=== PATIENT | female | born 1990 | race Caucasian/White ===

== ENCOUNTER 2019-05-27 11:56 | Outpatient (REF) | payer MEDICAID, SELFPAY ==
[2019-05-27 21:05] LABS: TSH 0.73 uIU/mL (0.358-3.74)
== END 2019-05-27 12:16 ==
LOC: NCHCN 11:56
PROVIDERS: PCP Family Medicine; Visit Provider Nurse Practitioner Family
DX: N93.8 Other specified abnormal uterine and vaginal bleeding (principal)
CPT/HCPCS: 84443

== ENCOUNTER 2022-06-15 15:54 | Outpatient (REF) | payer MEDICAID, SELFPAY ==
--- OUTSIDE RECORDS SUMMARY | 2022-06-15 16:03 | XMS_ITS | CCD ---
:1990 Author Care Team Providers Name Role Phone JENNIFER LARSON Attending Physician Unavailable JENNIFER LARSON Rounding (Secondary) Physician Unavailab le Vital Signs Unknown or Not Available. Allergies Allergy Code Allergy Type Reaction Status No Known Allergies 0 No known allergies Act fernie Procedures Unknown or Not Available. History of Immunizations Unknown or Not Available. Problems Unknown or Not Available. Results Unknown or Not Available. Active Medications Medication Code Dose Units Frequency Route Modification Start Date/Time Flovent HFA 042052 1 EACH NEEDED INHALATION 018 0.11MG/1Actuat 16:23 ion Inhalation Aerosol Powder Prescription Detail 1 EACH INHALATION NEEDED ProAir HFA 683209 2 PUFF NEEDED INHALATION 11/30/19 18 16:23 0.09MG/1Actuation Inhalation Suspension Prescription Detail 2 PUFF INHALATION NEEDED Medications Administered During Visit Unknown or Not Available. Encounters Encounter Diagnosis Diagnosis Code Start Date Pain in left shoulder [id number] 12/12/2021 Social History Smoking Status Code Start Date End Date Current every day smoker [id number] Patient Decision Aids Unknown or Not Available. Discharge Instructions You were admitted to [facility] on 12/12/2021 09:38 with a principal diagnosis of Pain in left shoulder You were discharged from [facility] on 12/12/2021 00:00 Should you have any questions prior to d ischarge, please contact a member of your healthcare team. If you have left the ho spital and have any questions, please contact your primary care physician. Chief Complaint and Reason For Visit Unknown or Not Available. Function Status Unknown or Not Available. Plan of Care Unknown or Not Available. Referral/Transition of Care Unknown or Not Available.
--- OUTSIDE RECORDS SUMMARY | 2022-06-15 16:03 | XMS_ITS | CCD ---
:1990 Author Care Team Providers Name Role Phone VENKATA DANIELLE Attending Physician Unavailable VENKATA DANIELLE Rounding (Secondary) Physician Unavaila ble Vital Signs Unknown or Not Available. Allergies Allergy Code Allergy Type Reaction Status No Known Allergies 0 No known allergies Act fernie Procedures Unknown or Not Available. History of Immunizations Unknown or Not Available. Problems Unknown or Not Available. Results Unknown or Not Available. Active Medications Medication Code Dose Units Frequency Route Modification Start Date/Time Flovent HFA 523014 1 EACH NEEDED INHALATION 018 0.11MG/1Actuat 16:23 ion Inhalation Aerosol Powder Prescription Detail 1 EACH INHALATION NEEDED ProAir HFA 854884 2 PUFF NEEDED INHALATION 11/30/19 18 16:23 0.09MG/1Actuation Inhalation Suspension Prescription Detail 2 PUFF INHALATION NEEDED Medications Administered During Visit Unknown or Not Available. Encounters Encounter Diagnosis Diagnosis Code Start Date Impingement syndrome of left shoulder M7542 Social History Smoking Status Code Start Date End Date Current every day smoker [id number] Patient Decision Aids Unknown or Not Available. Discharge Instructions You were admitted to [facility] on 09/23/2021 09:59 with a principal diagnosis of Impingement syndrome of left shoulder You were discharged from [facility] on 09/23/2021 00:00 Should you have any questions prior to d ischarge, please contact a member of your healthcare team. If you have left the spital and have any questions, please contact your primary care physician. Chief Complaint and Reason For Visit Unknown or Not Available. Function Status Unknown or Not Available. Plan of Care Unknown or Not Available. Referral/Transition of Care Unknown or Not Available.
--- OUTSIDE RECORDS SUMMARY | 2022-06-15 16:03 | XMS_ITS | CCD ---
[...] Frequency Route Modification Start Date/Time Flovent HFA 436969 1 EACH NEEDED INHALATION 018 0.11MG/1Actuat 16:23 ion Inhalation Aerosol Powder Prescription Detail 1 EACH INHALATION NEEDED ProAir HFA 085450 2 PUFF NEEDED INHALATION 11/30/19 18 16:23 0.09MG/1Actuation Inhalation Suspension Prescription Detail 2 PUFF INHALATION NEEDED Medications Administered During Visit Unknown or Not Available. Encounters Unknown or Not Available. Social History Smoking Status Code Start Date End Date Current every day smoker [id number] Patient Decision Aids Unknown or Not Available. Discharge Instructions You were admitted to [facility] on 06/14/2022 10:59 You were discharged from [facility] on 06/14/2022 00:00 Should you have any questions prior [...]
--- OUTSIDE RECORDS SUMMARY | 2022-06-15 16:03 | XMS_ITS | CCD ---
[...] Frequency Route Modification Start Date/Time Flovent HFA 376739 1 EACH NEEDED INHALATION 018 0.11MG/1Actuat 16:23 ion Inhalation Aerosol Powder Prescription Detail 1 EACH INHALATION NEEDED ProAir HFA 905681 2 PUFF NEEDED INHALATION 11/30/19 18 16:23 0.09MG/1Actuation Inhalation Suspension Prescription Detail 2 PUFF INHALATION NEEDED Medications Administered During Visit Unknown or Not Available. Encounters Encounter Diagnosis Diagnosis Code Start Date Pain in left shoulder [id number] 04/14/2022 Social History Smoking Status Code Start Date End Date Current every day smoker [id number] Patient Decision Aids Unknown or Not Available. Discharge Instructions You were admitted to [facility] on 04/14/2022 07:30 with a principal diagnosis of Pain in left shoulder You were discharged from [facility] on 04/14/2022 00:00 Should you have any questions prior [...]
--- OUTSIDE RECORDS SUMMARY | 2022-06-15 16:04 | XMS_ITS | Encounter Summary ---
:1990 Author Organization [facility] Address [address] [place] [address] Care Team Providers Name Role Phone Keyona Krishnamurthy MD Primary Care Provider Reason for Referral Radiology Services (STAT) - Authorization Not Required Specialty Diagnoses / Procedures Referred By Contact Refer red To Contact Diagnoses Crushing injury of left index finger Delilah Stern MD [facility] Procedures XR HAND LEFT 3 OR MORE VIEWS [address] [place], [place] [phone] Referral ID Status Reason Start Expiration Visits Visits Date Date Requested Authorized [id number] Authorization Not 04/21/2022 1 1 Required Reason for Visit Radiology Services (STAT) - Authorization Not Required Specialty Diagnoses / Procedures Referred By Contact Refer red To Contact Diagnoses Crushing injury of left index finger Delilah Stern MD [facility] Procedures XR HAND LEFT 3 OR MORE VIEWS [address] [place], [place] [phone] Referral ID Status Reason Start Expiration Visits Visits Date Date Requested Authorized [id number] Authorization Not 04/21/2022 1 1 Required Encounter Details Date Type Department Care Team Description 04/21/2022 Hospital Encounter [facility] - C rushing injury of left [facility] Xray index finger [address] [place] [address] Social History Tobacco Use Types Packs/Day Years Used Date Never Assessed Sex Assigned at Date Recorded Not on file documented as of this encounter Discharge Disposition Disposition Code Departure Means Destination Home or Self Care documented in this encounter Plan of Treatment Not on filedocumented as of this encounter Procedures Procedure Name Priority Date/Time Associated Diagnosis Comme nts XR HAND LEFT 3 OR STAT 04/21/2022 16:32 Crushing injury of Results for this MORE VIEWS EDT left index finger procedure are in the results section. documented in this encounter Results XR HAND LEFT 3 OR MORE VIEWS (04/21/2022 16:32 EDT) Anatomical Region Laterality Modality Upper Extremities Left Computed Radiography Specimen Impressions [facility] - 04/21/2022 17:12 EDT Acute nondisplaced fracture of the distal diaphysis of the distal phalanx of 2nd finger. ?? THIS DOCUMENT HAS BEEN ELECTRONICALLY SI GNED BY AMAURI CAI DO FOR ANY QUESTIONS OR CONCERNS REGARDING THIS REPORT PLEASE CALL [facility] AT [phone] Narrative [facility] - 04/21/2022 17:12 EDT PROCEDURE INFORMATION: Exam: XR Left Hand Exam date and time: 04/21/2022 4:19 PM Age: 32 years old Clinical indication: Crushing injury of left index finger, initial encounter; Pain; Finger(s); Steve tional info: Crush injury (l) index finger TECHNIQUE: Imaging protocol: XR Left hand. Views: 3 or more views. COMPARISON: No relevant prior studies available. FINDINGS: Bones/joints: Acute nondisplaced fractur e of the distal diaphysis of the distal phalanx of 2nd f kaylee. Soft tissue edema. No radiopaque foreign Soft tissues: ??Soft tissue edema. Procedure Note Amauri Cai DO - 04/21/2022 PROCEDURE INFORMATION: Exam: XR Left Hand Exam date and time: 04/21/2022 4:19 PM Age: 32 years old Clinical indication: Crushing injury of left index finger, initial encounter; Pain; Finger(s); Steve tional info: Crush injury (l) index finger TECHNIQUE: Imaging protocol: XR Left hand. Views: 3 or more views. COMPARISON: No relevant prior studies available. FINDINGS: Bones/joints: Acute nondisplaced fractur e of the distal diaphysis of the distal phalanx of 2nd f kaylee. Soft tissue edema. No radiopaque foreign Soft tissues: Soft tissue edema. IMPRESSION Acute nondisplaced fracture of the dista l diaphysis of the distal phalanx of 2nd finger. THIS DOCUMENT HAS BEEN ELECTRONICALLY SI GNED BY AMAURI CAI DO FOR ANY QUESTIONS OR CONCERNS REGARDING THIS REPORT PLEASE CALL [facility] AT [phone] Performing Organization Address City/State/ZIP Code Phon e Number [facility] documented in this encounter Visit Diagnoses Diagnosis Crushing injury of left index finger Crushing injury of finger(s) documented in this encounter Care Teams Nursery Laborer Relationship Specialty Start Date End Date Keyona Krishnamurthy MD PCP - General Family Medicine - Primary 04/21/[address] [place] [phone] documented as of this encounter
--- OUTSIDE RECORDS SUMMARY | 2022-06-15 16:04 | XMS_ITS | Encounter Summary ---
:1990 Author Organization [facility] Address [address] [place] [address] Care Team Providers Name Role Phone Unknown, Provider Primary Care Provider Encounter Details Date Type Department Care Team Description 11/13/[address] [facility] - Sophia Parry, Only [facility] Lab - Main [facility] [address] [place] [address] [address] [place] [address] Social History Tobacco Use Types Packs/Day Years Used Date Never Assessed Sex Assigned at Date Recorded Not on file documented as of this encounter Plan of Treatment Not on filedocumented as of this encounter Procedures Procedure Name Priority Date/Time Associated Comments Diagnosis COMPLETE BLOOD COUNT Routine 11/13/2018 8:15 Resu lts for this WITH DIFFERENTIAL EST procedure are in (AUTO) the results section. BLOOD BANK HOLD Routine 11/13/2018 8:15 Results f or this EST procedure are i n the results section. documented in this encounter Results (ABNORMAL) COMPLETE BLOOD COUNT WITH DIFFERENTIAL (AUTO) (11/13/2018 8:15 EST) Pathologist Sig nature ABSOLUTE NEUTROPHIL 8.77 (H) 1.7 - 7.0 [facility] COUN - [facility] 10e3/ul [facility]ENTER [facility] BASO # - [facility] 0.02 0.0 - 0.3 [facility] MED 10e3/uL [facility] % - [facility] 0 0 - 2 % [facility] EOS # - [facility] 0.09 0.05 - 0.5 [facility] 10e3/uL [facility] EOS % - [facility] 1 0 - 5 % [facility] GRAN % - [facility] 66 40 - 80 % [facility] HEMATOCRIT - [facility] 42.1 34.0 - 47.0 % [facility] HEMOGLOBIN - [facility] 14.3 11.2 - 15.7 [facility] g/dl [place] [facility] IG# - [facility] 0.12 (H) 0 - 0.07 [facility] 10e3/uL [place] IG% - [facility] 0.9 0 - 0.9 % [facility] LYMPH # - [facility] 3.59 (H) 0.9 - 2.9 [facility] 10e3/uL [place] [facility] LYMPH% - [facility] 27 20 - 40 % [facility] MEAN CORPUSCULAR HGB 28.5 26 - 34 pg [facility] MEAN CORPUSCULAR HGB 34.0 31 - 36 g/dL [facility] CONC [facility] LAB MEAN CELL VOLUME - 84.0 77 - 100 fl [facility] MONO # - [facility] 0.72 0.3 - 0.9 [facility] 10e3/uL [place] [facility] MONO% - [facility] 5 0 - 12 % [facility] PLATELET COUNT 317 150 - 400 [facility] 10e3/ul [place] [facility] RED BLOOD COUNT - 5.01 3.8 - 5.2 [facility] 10e6/ul [place] [facility] RED CELL DISTRI WIDTH 14.5 11.8 - 15.6 % [facility] ME D [facility] LAB WHITE BLOOD COUNT - 13.3 (H) 3.5 - 10.5 [facility] 10e3/ul [place] [facility] Specimen Performing Organization Address [facility] Phon e Number [facility] [address] [place], [place] [id number] [place] [address] LAB BLOOD BANK HOLD (CLOT) (11/13/2018 8:15 EST) CLOT TO HOLD - [facility] See Note [facility] Comment: CENTER LAB CLOT TO HOLD WILL IN 48 HOURS FROM DATE ?AND TIME OF COLLECTION ?BLOOD BANK HISTORY HAS BEEN CHECKED Specimen Performing Organization Address [facility] Phon e Number [facility] [address] [place] [address] [facility] documented in this encounter Visit Diagnoses Not on filedocumented in this encounter Care Teams Data Virtualization Consultant Relationship Specialty Start Date End Date Unknown, Provider, PCP - General 04/22/18 04/20/22 documented as of this encounter
--- OUTSIDE RECORDS SUMMARY | 2022-06-15 16:04 | XMS_ITS | Encounter Summary ---
:1990 Author Organization [facility] Address [address] [place] [address] Care Team Providers Name Role Phone Alessia Garcia SHRUTHI Primary Care Provider Unknown, Provider Primary Care Provider Encounter Details Date Type Department Care Team Description 10/08/2009 Historical Results [facility] - Tim Bettencourt, Only [facility] Lab - Main [facility] DO [address] [place] [address] [address] [place] [address] Social History Tobacco Use Types Packs/Day Years Used Date Never Assessed Sex Assigned at Date Recorded Not on file documented as of this encounter Plan of Treatment Not on filedocumented as of this encounter Procedures Procedure Name Priority Date/Time Associated Diagnosis Comme nts SURGICAL PATHOLOGY Routine 10/08/2009 Results f or this procedure are i n the results section . documented in this encounter Results SURGICAL PATHOLOGY (10/08/2009) Specimen Narrative [facility] - 10/19/2009 12 :54 EST Name: CATARINA TODD ? : [birth year] ?Age/Sex: 29/F ?Unit#: [id number] ? Loc: OBS ? Status: DIS IN ? Reg Date: 10/08/09 ? Pt.Phone Number : ? Specimen: [id number] ? STA TUS: SOUT ?Spec Date:10/08/09 ? Physician Copies: ?Philip Bettencourt DO Tissues: A ?? Female Reproductive System (PLACENTA) ? CPT: 33266 ?? Units: ??1 ?FINAL DIAGNOSIS ? Placenta, membranes, and umbilica l cord: ? - Mature white placenta (448 grams). ? - Acute chorioamnionitis. ? - Early umbilical cord inflammati on (leukocyte margination in umbilical ? arteries), no fully developed funisitis. ?COMMENT ? No meconium is identified. ??No villiti s or fully developed funisitis. ? GROSS DESCRIPTION ? Received in formalin labeled with the patient's name is a placenta with ? attached membranes and umbi lical cord. ??The placenta is irregularly oval ? shaped with a diameter of 17 x 12 cm and a maximum thickness of 3.5 cm. ??The ? umbilical cord shows a solid cent ral insertion and measures 45 cm long x ? average 1 cm in diameter. ??No kn ots, varices, or thrombosis are present. ? Cross-sectioning demonstrates the normal three vessels. ?? membranes are ? zhang-cole, pliable and translucent . ??Membranes appear to be complete are without ? gross evidence of meconium staini ng. ??The trimmed placenta weighs 448 grams. ? The surface is blue-cole, s mooth and glistening with the usual pattern of ? arborizing vessels. ??No varices or thrombosis are seen. ??The maternal surface ? shows normal cotyledonous archite cture and is complete with mild central ? disruption. ??No infarcts are franco ntified. ??Interval sectioning shows deep red ? spongy parenchyma without solid o r cystic masses. ??r.s. 4. CP ?? PREOP DX/CLINICAL HISTORY ?Term-- spontaneo us labor. Terminal bradycardia. Signed ____(signature on file)____ Izabel Sanford M.D. 10/19/09 By the signature above, the attending ph ysician certifies that he/she has personally conducted a gross and/or microscopic exa mination of the described specimens and rendered or confirmed the above diagnosi s. Test Performed by [facility], [address] [place], [place] [id number] Mechanical Test Engineer: Izabel Esquivel MD PHD Performing Organization Address City/State/ZIP Code Phon e Number [facility] [address] [place] [phone] [facility] documented in this encounter Visit Diagnoses Not on filedocumented in this encounter Care Teams Radio Operator Relationship Specialty Start Date End Date Alessia Garcia FNP PCP - General 06/15/09 04/21/18 [address] [place] [phone] Unknown, Provider, PCP - General 04/22/18 04/20/22 documented as of this encounter
--- OUTSIDE RECORDS SUMMARY | 2022-06-15 16:04 | XMS_ITS | Encounter Summary ---
:1990 Author Organization [facility] Address [address] [place] [address] Care Team Providers Name Role Phone Alessia Garcia Primary Care Provider Encounter Details Date Type Department Care Team Description 05/18/2014 Hospital Encounter [facility] - Unknown, Claudine brennan, [facility] [phone] [place] [address] (Work) [place] [address] Social History Tobacco Use Types Packs/Day Years Used Date Never Assessed Sex Assigned at Date Recorded Not on file documented as of this encounter Discharge Disposition Disposition Code Departure Means Destination Home or Self Senior Care documented in this encounter Plan of Treatment Not on filedocumented as of this encounter Visit Diagnoses Not on filedocumented in this encounter Care Teams Blasting Clay Miner Relationship Specialty Start Date End Date Alessia Garcia FNP PCP - General 06/15/09 04/21/18 [address] [place] [phone] documented as of this encounter
--- OUTSIDE RECORDS SUMMARY | 2022-06-15 16:04 | XMS_ITS | Encounter Summary ---
:1990 Author Organization [facility] Address [address] [place] [address] Care Team Providers Name Role Phone Alessia Garcia Primary Care Provider Encounter Details Date Type Department Care Team Description 04/18/2018 Hospital Encounter [facility] - Unknown, Claudine brennan, [facility] [phone] [place] [address] (Work) [place] [address] Social History Tobacco Use Types Packs/Day Years Used Date Never Assessed Sex Assigned at Date Recorded Not on file documented as of this encounter Discharge Disposition Disposition Code Departure Means Destination Home or Self Senior Care documented in this encounter Plan of Treatment Not on filedocumented as of this encounter Visit Diagnoses Not on filedocumented in this encounter Care Teams Spring Tier Relationship Specialty Start Date End Date Alessia Garcia FNP PCP - General 06/15/09 04/21/18 [address] [place] [phone] documented as of this encounter
--- OUTSIDE RECORDS SUMMARY | 2022-06-15 16:04 | XMS_ITS | Encounter Summary ---
:1990 Author Organization [facility] Address [address] [place] [address] Care Team Providers Name Role Phone Unknown, Provider Primary Care Provider Encounter Details Date Type Department Care Team Description 08/30/2018 Historical Results [facility] - Shwetha An, Only [facility] Lab - Main [facility] MD [facility] [address] [place] [address] [address] [place] [address] Social History Tobacco Use Types Packs/Day Years Used Date Never Assessed Sex Assigned at Date Recorded Not on file documented as of this encounter Plan of Treatment Not on filedocumented as of this encounter Procedures Procedure Name Priority Date/Time Associated Diagnosis Comme nts [facility] Routine 08/30/2018 8:59 EDT Re sults for this procedure are i n the results section. HEMOGLOBIN - CV Routine 08/30/2018 8:59 EDT Res ults for this procedure are i n the results section. documented in this encounter Results [facility] - CV (08/30/2018 8:59 EDT) [facility] - 127 88 - 139 [facility] Comment: mg/dL [facility]ENTER LAB ACOG RECOMMENDED GUIDELINES Greater than or equal to ??140 mg/dL suspect gestation al diabetes. ?? Recommend confirmation with 3 hr GTT Specimen Narrative [facility] - 018 10:06 EDT Does PT Have a Latex Allergy? NO Performing Organization Address City/State/ZIP Code Phon e Number [facility] [address] [place] [address] [facility] HEMOGLOBIN - [facility] (08/30/2018 8:59 EDT) Pathologist Sig nature HEMOGLOBIN - [facility] 12.7 11.2 - 15.7 g/dl [facility] Specimen Narrative [facility] - 018 9:58 EDT Does PT Have a Latex Allergy? NO Performing Organization Address City/State/ZIP Code Phon e Number [facility] [address] [place], [place] [phone] [place] [address] LAB documented in this encounter Visit Diagnoses Not on filedocumented in this encounter Care Teams Dental Director Relationship Specialty Start Date End Date Unknown, Provider, PCP - General 04/22/18 04/20/22 documented as of this encounter
--- OUTSIDE RECORDS SUMMARY | 2022-06-15 16:04 | XMS_ITS | Encounter Summary ---
:1990 Author Organization [facility] Address [address] [place] [address] Care Team Providers Name Role Phone Alessia Garcia [facility] Primary Care Provider Encounter Details Date Type Department Care Team Description 10/19/2009 Abstract [facility] Alessia Garcia Fet al Abn [facility] [address] [place] [phone] (Wo rk) Social History Tobacco Use Types Packs/Day Years Used Date Never Assessed Sex Assigned at Date Recorded Not on file documented as of this encounter Plan of Treatment Not on filedocumented as of this encounter Visit Diagnoses Diagnosis Other known or suspected abnormali ty, not elsewhere classified, affecting management of mother, antepartum conditi on or complication documented in this encounter Care Teams Needle Grinder Relationship Specialty Start Date End Date Alessia Garcia FNP PCP - General 06/15/09 04/21/18 [address] [place] [phone] documented as of this encounter
--- OUTSIDE RECORDS SUMMARY | 2022-06-15 16:04 | XMS_ITS | Encounter Summary ---
:1990 Author Organization [facility] Address [address] [place] [address] Care Team Providers Name Role Phone Alessia Garcia SHRUTHI Primary Care Provider Encounter Details Date Type Department Care Team Description 06/16/2009 Hospital Encounter [facility] [address] [place] [address] Social History Tobacco Use Types Packs/Day Years Used Date Never Assessed Sex Assigned at Date Recorded Not on file documented as of this encounter Discharge Disposition Disposition Code Departure Means Destination Home or Self Retirement documented in this encounter Plan of Treatment Pending Results Name Type Priority Associated Diagnoses Date/Ti me SENIOR LIVING DETAILED Imaging 06/16/2009 15:1 5 EDT Scheduled Orders Name Type Priority Associated Diagnoses Order S chedule SENIOR LIVING DETAILED Imaging ONCE for 1 Occu rrences starting 07/15/2009 documented as of this encounter Procedures Procedure Name Priority Date/Time Associated Diagnosis Comme nts SENIOR LIVING DETAILED 06/16/2009 15:00 EDT Results for this procedure are i n the results section . documented in this encounter Results SENIOR LIVING DETAILED (06/16/2009 15:00 EDT) Anatomical Region Laterality Modality Other Specimen Narrative [facility] - 06/22/2009 5:38 EDT Please refer to the separate [facility] re port. ??Contact Maternal Medicine. Procedure Note 06/22/2009 Please refer to the separate [facility] re port. Contact Maternal Medicine. Performing Organization Address City/State/ZIP Code Phon e Number [facility] MATERNAL MEDICINE ACC [facility] documented in this encounter Visit Diagnoses Not on filedocumented in this encounter Care Teams Customer Support Manager Relationship Specialty Start Date End Date Alessia Garcia FNP PCP - General 06/15/09 04/21/18 [address] [place] [phone] documented as of this encounter
--- OUTSIDE RECORDS SUMMARY | 2022-06-15 16:04 | XMS_ITS | Encounter Summary ---
:1990 Author Organization [facility] Address [address] [place] [address] Care Team Providers Name Role Phone Unknown, Provider Primary Care Provider Encounter Details Date Type Department Care Team Description 05/16/2018 Historical Results Only [facility] - Caleb Galo, [facility] - [facility] [address] [place] [address] Social History Tobacco Use Types Packs/Day Years Used Date Never Assessed Sex Assigned at Date Recorded Not on file documented as of this encounter Plan of Treatment Not on filedocumented as of this encounter Procedures Procedure Name Priority Date/Time Associated Diagnosis Comme nts GC/CHLAMYDIA PCR - Routine 05/16/2018 11:00 Resul ts for this [facility] EDT procedure are i n the results section. documented in this encounter Results GC/CHLAMYDIA PCR - [facility] (05/16/2018 11:00 EDT) Pathologist Sig nature CHLAMYDIA PCR - [facility] NOT DETECTED [facility] GONORRHEA PCR - [facility] NOT DETECTED [facility] SOURCE CX [facility] Specimen Performing Organization Address City/State/ZIP Code Phon e Number [facility] [address] [place] [address] [facility] documented in this encounter Visit Diagnoses Not on filedocumented in this encounter Care Teams Assistant Professor Of Education Relationship Specialty Start Date End Date Unknown, Provider, PCP - General 04/22/18 04/20/22 documented as of this encounter
--- OUTSIDE RECORDS SUMMARY | 2022-06-15 16:04 | XMS_ITS | Encounter Summary ---
:1990 Author Organization [facility] Address [address] [place] [address] Care Team Providers Name Role Phone Alessia Garcia SHRUTHI Primary Care Provider Unknown, Provider Primary Care Provider Encounter Details Date Type Department Care Team Description 04/18/2018 Historical Results [facility] - Shwetha An, Only [facility] [place] [address] [place] [address] [address] [place] [address] Social History Tobacco Use Types Packs/Day Years Used Date Never Assessed Sex Assigned at Date Recorded Not on file documented as of this encounter Plan of Treatment Not on filedocumented as of this encounter Procedures Procedure Name Priority Date/Time Associated Comments Diagnosis HIV 1/2 AB, P24 AG - Routine 04/18/2018 10:39 Res ults for this [facility] EDT procedure are i n the results section. COMPLETE BLOOD COUNT Routine 04/18/2018 10:39 Res ults for this WITH DIFFERENTIAL EDT procedure are in (AUTO) the results section. RAPID PLASMA REAGIN Routine 04/18/2018 10:39 Resu lts for this (RPR) WITH REFLEX, S EDT procedu re are in the results section. RUBELLA IGG ANTIBODY Routine 04/18/2018 10:39 Res ults for this EDT procedure are i n the results section. HEPATITIS B SURFACE Routine 04/18/2018 10:39 Resu lts for this ANTIGEN EDT procedure are i n the results section. TYPE AND SCREEN Routine 04/18/2018 10:39 Results for this EDT procedure are i n the results section. VARICELLA IGG Routine 04/18/2018 10:39 Results fo r this ANTIBODY EDT procedure are i n the results section. US OB FIRST TRIMESTER 04/18/2018 10:14 Re sults for this (LESS THAN 14 WEEKS) EDT procedu re are in TRANSVAGINAL the results section. GC/CHLAMYDIA PCR - Routine 04/18/2018 9:41 Result s for this [facility] [place]T procedure are i n the results section. URINALYSIS/COMPLETE - Routine 04/18/2018 9:41 Res ults for this [facility] EDT procedure are i n the results section. BACTERIAL CULTURE, Routine 04/18/2018 9:41 Result s for this URINE EDT procedure are i n the results section. PAP TEST Routine 04/18/2018 Results for thi s procedure are i n the results section. documented in this encounter Results RUBELLA IGG ANTIBODY (04/18/2018 10:39 EDT) RUBELLA IGG Positive [facility] ANTIBODY - [facility] Comment: [facility] Expected value: Positive The presence of Rubella IgG suggest immunity against r ubella Specimen Narrative [facility] - 018 13:12 EDT Does PT Have a Latex Allergy? NO Performing Organization Address City/[facility] Phon e Number [facility] [address] [place] [address] LAB HEPATITIS B SURFACE ANTIGEN (04/18/2018 10:39 EDT) Pathologist Sig nature Hep B Surface Ag NegativeComment: [facility] Expected Values: [facility] Negative. Specimen Narrative [facility] - 018 13:11 EDT Does PT Have a Latex Allergy? NO Enter/Edit CPT and ICD codes? N Performing Organization Address [facility] Code Phon e Number [facility] [address] [place] [address] LAB VARICELLA IGG ANTIBODY (04/18/2018 10:39 EDT) Varicella IgG Ab PositiveComment: Negative [facility] Presumed immune to [facility] Varicella infection. Specimen Narrative [facility] - 018 22:27 EDT Does PT Have a Latex Allergy? NO Performing Organization Address City/State/ZIP Code Phon e Number [facility] [address] [place] [address] [facility] (ABNORMAL) COMPLETE BLOOD COUNT WITH DIFFERENTIAL (AUTO) (04/18/2018 10:39 EDT) Pathologist Sig nature ABSOLUTE NEUTROPHIL 7.30 (H) 1.7 - 7.0 [facility] COUN - CV 10e3/ul [facility] BASO # - [facility] 0.01 0.0 - 0.3 [facility] 10e3/uL [facility] BASO % - [facility] 0 0 - 2 % [facility] EOS # - CV 0.14 0.05 - 0.5 [facility] 10e3/uL [facility] EOS % - [facility] 1 0 - 5 % [facility] GRAN % - [facility] 60 40 - 80 % [facility] HEMATOCRIT - [facility] 44.2 34.0 - 47.0 % [facility] HEMOGLOBIN - [facility] 15.3 11.2 - 15.7 [facility] g/dl [facility] IG# - [facility] 0.05 0 - 0.07 [facility] 10e3/uL [facility] IG% - [facility] 0.4 0 - 0.9 % [facility] LYMPH # - [facility] 4.15 (H) 0.9 - 2.9 [facility] 10e3/uL [facility] LYMPH% - [facility] 34 20 - 40 % [facility] MEAN CORPUSCULAR HGB 29.0 26 - 34 pg [facility] MED [facility] MEAN CORPUSCULAR HGB 34.6 31 - 36 g/dL [facility] CONC - [facility] MEAN CELL VOLUME - 83.7 77 - 100 fl [facility] MONO # - [facility] 0.63 0.3 - 0.9 [facility] 10e3/uL [facility] MONO% - CV 5 0 - 12 % [facility] PLATELET COUNT 335 150 - 400 [facility] 10e3/ul [facility] RED BLOOD COUNT - 5.28 (H) 3.8 - 5.2 [facility] 10e6/ul [facility] RED CELL DISTRI WIDTH 13.6 11.8 - 15.6 % [facility] D - CV [facility] WHITE BLOOD COUNT - 12.3 (H) 3.5 - 10.5 [facility] 10e3/ul [facility] Specimen Narrative [facility] - 018 11:00 EDT Does PT Have a Latex Allergy? NO Performing Organization Address City/[facility]/ZIP Code Phon e Number [facility] [address] [facility], [place] [id number] [place] [address] LAB HIV 1/2 AB, P24 AG - [facility] (04/18/2018 10:39 EDT) Pathologist [facility] HIV 1/2 AB, [address] [facility] Comment: [facility] ?? Fourth generation assay performed on the Siemens CyberArtsaur. If acute HIV-1 infection is suspected in a high risk patient, submit plasma specimen for HIV-1 RNA quantification test. ?? The results of this assay can be falsely lowered due to the consumption of Biotin. Test Performed by: THE [address] [address] Specimen Narrative [facility] - 018 20:56 EDT Does PT Have a Latex Allergy? NO Performing Organization Address City/[facility]/ZIP Code Phon e Number [facility] [address] [place] [address] [facility] RAPID PLASMA REAGIN (RPR) WITH REFLEX, S (04/18/2018 10:39 EDT) Pathologist Sig nature APID PLASMA REAGIN - Nonreactive NEG [facility] LAB Specimen Narrative [facility] - 018 8:32 EDT Does PT Have a Latex Allergy? NO Performing Organization Address City/State/ZIP Code Phon e Number [facility] [address] [place] [address] [facility] TYPE AND SCREEN (04/18/2018 10:39 EDT) Pathologist [facility] BLOOD TYPE [facility] B Positive [facility] Antibody Screen NEGATIVE [facility] Specimen Expires: 04/21/18 AT 23:59 [facility] Comment: MED [facility]ENTER LAB PATIENT'S RESPONSES INDICATE A HISTORY OF SURGERY, TRANSFUSION OR WITHIN THE LAST 3 MONTHS. THIS PATIENT'S BLOOD TYPE HAS NOT BEEN CONFIRMED AT [facility]. IF BLOOD PRODUCTS ARE ORDERED WITHIN 72 HOURS FROM THE TIME IT WAS COLLECTED, A TYPE CONFIRMATION WILL BE ORDERED AND COLLECTED. ??ANY BLOOD PRODUCTS ORDERED AFTER 72 HOURS MUST BE WORKED UP ON A NEW SPECIMEN. Specimen Narrative [facility] - 018 10:36 EDT Does PT Have a Latex Allergy? NO IS THIS A PREOPERATIVE PATIENT? N Performing Organization Address City/State/ZIP Code Phon e Number [facility] [address] LAB US OB FIRST TRIMESTER (LESS THAN 14 WEEKS) TRANSVAGINAL (04/18/2018 10:14 EDT) Specimen Narrative [facility] - 04/19/2018 13:53 EDT ? EXAM: ULTRASOUND/TRANSVAGINAL - OB (LEVEL EX. D/ (1014) ? CLINICAL INFORMATION: ? Z33.1 STATE INCIDENTAL ? VIABILITY/DATING ? See attached report. ??Report als o available in PACS. ? POWER BUILDER DEVELOPER:kad ?Reported B y: Mickey Marie MD ? CC: ? Transcribed Date/Time: 04/19/2018 (1353) ? Tele Marketing Executive: EFREN ? Printed Date/Time: 05/02/2019 (11 25) ? PAGE 1 ? Diana d Report ? Procedure Note Mickey Marie MD - 09/18/2019 EXAM: ULTRASOUND/TRANSVAGINAL - OB (LEV EL EX. D/ (1014) CLINICAL INFORMATION: Z33.1 STATE INCIDENTAL VIABILITY/DATING See attached report. Report also availa ble in PACS. POWER BUILDER DEVELOPER:karosenda Reported By: Mickey Marie MD CC: Transcribed Date/Time: 04/19/2018 (3938 ) Tele Marketing Executive: EFREN Printed Date/Time: 05/02/2019 (4288) PAGE 1 Signed Report Performing Organization Address City/State/ZIP Code Phon e Number [facility] BACTERIAL CULTURE, URINE (04/18/2018 9:41 EDT) Pathologist Sig nature Urine Culture [facility] Urine Culture No growth. [facility] Specimen Performing Organization Address City/[facility]/ZIP Code Phon e Number [facility] [address] LAB GC/CHLAMYDIA PCR - [facility] (04/18/2018 9:41 EDT) CHLAMYDIA PCR - DETECTED [facility] Comment: [facility]ENTER [facility] CHLAMYDIA TRACHOMATIS DNA detected by nucleic acid amplification with real-time PCR. Result called to CARLOS ARTEAGA IN AGO 04/18/18 1402: Result called by RYAN GONORRHEA PCR - NOT DETECTED [facility] SOURCE CERVIX [facility] Specimen Performing Organization Address City/[facility]/ZIP Code Phon e Number [facility] [address] LAB URINALYSIS/COMPLETE - [facility] (04/18/2018 9:41 EDT) URINE APPEARANCE - Clear CLEAR [facility] URINE BACTERIA - NEG [facility] URINE BILIRUBIN - Negative NEGATIVE [facility] DIPSTICK [facility] URINE BLOOD - [facility] Negative NEG [facility] URINE COLOR - [facility] Yellow YELLOW [facility] URINE GLUCOSE - Negative NEGATIVE [facility] DIPSTICK - [facility] URINE KETONE - [facility] Negative NEGATIVE [facility] URINE LEUK ESTERASE 1+ NEG [facility] URINE NITRITE - Negative NEG [facility] DIPSTICK [facility] URINE PH - [facility] 7.0 4.0 - 8.0 [facility] URINE PROTEIN - Negative NEG [facility] DIPSTICK [facility] URINE RBC - [facility] NEG rbc/hpf [facility] URCULTIF+? - [facility] Culture Ordered [facility] URINE SPECIFIC <=1.005 1.001 - 1.035 [facility] GRAVITY [facility] URINE SQUAMOUS CELLS MOD NEG #/hpf [facility] URINE UROBILINOGEN - 0.2 0.2 - 1.0 [facility] DIPSTICK [facility] URINE WBC - [facility] 1-4 NEG wbc/hpf [facility] Specimen Performing Organization Address City/State/ZIP Code Phon e Number [facility] [address] [place], [place] [id number] [place] [address] LAB PAP TEST (04/18/2018) Specimen Narrative [facility] - 018 8:40 EDT Name: PEREZBIA Soler ? : [birth year] ?Age/Sex: 29/F ?Unit#: [id number] ? Loc: AGO ? Status: REG POV ?? Reg Date: 04/18/18 ? Pt.Phone Number : ? Specimen: [id number] ?STA TUS: SOUT ?Spec Date:04/18/18 ? Physician Copies: ?Nataliya,Shwetha FAULKNER ?? Tissues: ? Cervical/Endo Pap ?Doug Reddy ? CPT: 37582 ?? Units: ??1 ? CYTOLOGY DIAGNOSIS SPECIMEN ADEQUACY: ?Satisfactory for evaluation. Transformation zone component present. GENERAL CATEGORIZATION: ?Negative fo r Intraepithelial Lesion or Malignancy DESCRIPTIVE DIAGNOSIS: ? Negative fo r Intraepithelial Lesion or Malignancy. ORDER QUERIES: LMP: 02/12/18- ?Preg nant? Y Post ? N ??PREVIOUS ATYPICAL: N BCP/HRT? N Rad Rx? N IUD? N ??PAP PLUS HPV? N ??REFLEX TO HR-HPV IF ASCUS Y REFLEX TO HPV 16/18 IF HPV POS/PAP NEG N HPV REGARDLESS? N ??RFLX HPV IF LSIL ?? Signed Karlene Dias CT(ASCP) 04/25/18 By the signature above, the attending ph ysician certifies that he/she has personally conducted a gross and/or microscopic exa mination of the described specimens and rendered or confirmed the above diagnosi s. Test Performed by [facility], [address] [place], [place] [id number] Machine Tool Technology Instructor: Izabel Esquivel MD PHD Performing Organization Address City/State/ZIP Code Phon e Number [facility] [address] [place], [place] [id number] [place] [address] LAB documented in this encounter Visit Diagnoses Not on filedocumented in this encounter Care Teams Salvage Supervisor Relationship Specialty Start Date End Date Alessia Garcia FNP PCP - General 06/15/09 04/21/18 [address] [place] [address] Unknown, Provider, PCP - General 04/22/18 04/20/22 documented as of this encounter
--- OUTSIDE RECORDS SUMMARY | 2022-06-15 16:04 | XMS_ITS | Encounter Summary ---
:1990 Author Organization [facility] Address [address] [place] [address] Care Team Providers Name Role Phone Unavailable Primary Care Provider Unavailable Encounter Details Date Type Department Care Team Description 05/10/2009 Orders Only [facility] Adult Unknown , Provider, Primary Care - Isai pittman [address] [facility] [place] [address] Social History Tobacco Use Types Packs/Day Years Used Date Never Assessed Sex Assigned at Date Recorded Not on file documented as of this encounter Plan of Treatment Not on filedocumented as of this encounter Procedures Procedure Name Priority Date/Time Associated Comments Diagnosis CHLAMYDIA/N. Routine 05/10/2009 16:45 Results for this GONORRHOEAE AMPLIFIED EDT proced ure are in RNA the results section. CYTOPATHOLOGY Routine 05/10/2009 0:00 Results for this EDT procedure are i n the results section. documented in this encounter Results CHLAMYDIA/GC AMPLIFIED (05/10/2009 16:45 EDT) Specimen Cervix [facility] Description LAB Result No Chlamydia [facility] trachomatis DNA LAB detected by roll shop supervisor mediated amplification. Result No Neisseria [facility] gonorrhoeae DNA LAB detected by roll shop supervisor mediated amplification. Specimen Other (qualifier value) Performing Organization Address City/State/ZIP Code Phon e Number [facility] [address] [place] [address] [facility] [address] [place] [address] CYTOPATHOLOGY (05/10/2009 0:00 EDT) Pathology Report: CYTOPATHOLOGY REPORT ? [facility] ? LAB Reports generated via electr onic interface contain original data; ? however they are lacking the format of the original report. ? Caution should be taken when reading/interpreting unformatted reports. ? Name: ? CATARINA TODD ? Accession #: ? [id number] ? : ? 1990 (Age: 19) ??F ?Collect Date: ? 05/10/2009 ? Location: ? [facility] ? Receive Date: ? 05/11/2009 ? Provider: ?STAN CLAIRE CNM ? Copy to: ? Specimen/Source: ? Pap Test, Cervix/Endocervix, ThinPrep Imaging System ? with manual evaluation ? Last Menstrual Period: ? 2/18/09 ? Menstrual/ Status: ? Other: ? HPVA - HPV testing requested if ASC-US on the current ThinPrep Pap test. ? SPECIMEN ADEQUACY ? Satisfactory for Eval uation ? - transformation zone compon ent absent ? GENERAL CATEGORIZATION ? Negative for Intraepi thelial Lesion or Malignancy ? Document reviewed and electr onically signed by: ? Ariadna Lj, CT( CP) ? Report Date: ??07/06/ 2009 14:47 ? End of Report ? Specimen Performing Organization Address City/State/ZIP Code Phon e Number [facility] [address] [place] [address] [facility] [address] [place] [address] documented in this encounter Visit Diagnoses Not on filedocumented in this encounter
--- OUTSIDE RECORDS SUMMARY | 2022-06-15 16:04 | XMS_ITS | Encounter Summary ---
:1990 Author Organization [facility] Address [address] [place] [address] Care Team Providers Name Role Phone Alessia Garcia WHEEL BRAIDER Primary Care Provider Encounter Details Date Type Department Care Team Description 06/17/2014 Results Only [facility] Manny Pradhan i, RISK TECH Laboratory Services - [address] [address] [address] [facility] [place] [address] [phone] Social History Tobacco Use Types Packs/Day Years Used Date Never Assessed Sex Assigned at Date Recorded Not on file documented as of this encounter Plan of Treatment Not on filedocumented as of this encounter Procedures Procedure Name Priority Date/Time Associated Diagnosis Comme nts PAP TEST- RESULT Routine 06/17/2014 0:00 EDT Resu lts for this ONLY procedure are i n the results section. documented in this encounter Results PAP TEST- RESULT ONLY (06/17/2014 0:00 EDT) Pathology Report: CYTOPATHOLOGY REPORT [facility] Reports generated via electronic interface contain roopa ginal data; however they are lacking the format of the original re port. Caution should be taken when reading/interpreting unfo rmatted reports. Name: ? CATARINA TODD ? Accession #: ? T : ? 1990 (Age: 24) ??F ?Collect Date: ? 04/2014 Location: ? [facility] ? Receive Date : ? 06/22/2014 Provider: ?THEO PRADHAN RISK TECH Copy to: ? Specimen/Source: ? Pap Test, Cervix/Endocervix, ThinPrep Imaging System with manual evaluation Last Menstrual Period: ? 05/08/2014 Hormonal/Contraceptive Status: ? Depo-Provera ? SPECIMEN ADEQUACY ? Satisfactory for Evaluation - transformation zone component present GENERAL CATEGORIZATION ? Negative for Intraepithelial Lesion or Malignan cy INTERPRETATION ? Reactive cellular mikaela nges associated with inflammation present (includes repair). ? Document reviewed and electronically signed by: ? MARCIANO BRAVO MD ? Report Date: ??06/26/2014 16:00 End of Report Specimen Performing Organization Address City/State/ZIP Code Phon e Number [facility] [address] [place] [phone] [facility] [address] [place] [address] documented in this encounter Visit Diagnoses Not on filedocumented in this encounter Care Teams Financial Planning Adviser Relationship Specialty Start Date End Date Alessia Garcia FNP PCP - General 06/15/09 04/21/18 [address] [place] [id number] documented as of this encounter
--- OUTSIDE RECORDS SUMMARY | 2022-06-15 16:04 | XMS_ITS | Encounter Summary ---
:1990 Author Organization [facility] Address [address] [place] [address] Care Team Providers Name Role Phone Unknown, Provider Primary Care Provider Encounter Details Date Type Department Care Team Description 08/02/2018 Hospital Encounter [facility] - Unknown, Claudine brennan [facility] [phone] [place] [address] (Work) [place] [address] Social History Tobacco Use Types Packs/Day Years Used Date Never Assessed Sex Assigned at Date Recorded Not on file documented as of this encounter Discharge Disposition Disposition Code Departure Means Destination Home or Self [facility] documented in this encounter Plan of Treatment Not on filedocumented as of this encounter Visit Diagnoses Not on filedocumented in this encounter Care Teams Sinter Feeder Relationship Specialty Start Date End Date Unknown, Provider, PCP - General 04/22/18 04/20/22 documented as of this encounter
--- OUTSIDE RECORDS SUMMARY | 2022-06-15 16:04 | XMS_ITS | Encounter Summary ---
:1990 Author Organization [facility] Address [address] [place] [address] Care Team Providers Name Role Phone Unknown, Provider MD Primary Care Provider Reason for Visit Reason Onset Date Comments Post-Delivery 10/24/2019 Needs date of delive ry and baby weigth, race and ethicity if possible. Encounter Details Date Type Department Care Team Description 10/24/2019 Telephone [facility] - Ping Galo, Halina t-Delivery (Needs [facility] date of delivery and [address] baby weigth, [place] [address] ethicity if possible. ) [phone] Social History Tobacco Use Types Packs/Day Years Used Date Never Assessed Sex Assigned at Date Recorded Not on file documented as of this encounter Miscellaneous Notes Telephone Encounter - Shabnam Cortez RN - 12/16/2019 1616 EST Have not heard from this person in almost two months. Will wait for them to reinitiate call. elephone Encounter - Dinh Fishre - 12/16/2019 1026 EST If you haven't given out the information, it's best to direct her to HIM. elephone Encounter - Shabnam Cortez RN - 10/24/2019 1407 EST Dinh, is it ok to give this info out or should we direct her to [employer] Document Management software. Records? elephone Encounter - Yessy Paz - 10/24/2019 1353 EST Needs date of delivery and baby weigth, race and ethicity if possible. PCP is Earline Fenton documented in this encounter Plan of Treatment Not on filedocumented as of this encounter Visit Diagnoses Not on filedocumented in this encounter Care Teams Silk Screen Painter Relationship Specialty Start Date End Date Unknown, Provider, PCP - General 04/22/18 04/20/22 documented as of this encounter
--- OUTSIDE RECORDS SUMMARY | 2022-06-15 16:04 | XMS_ITS | CCD ---
:1990 Author Care Team Providers Name Role Phone VENKATA DANIELLE Attending Physician Unavailable Vital Signs Unknown or Not Available. Allergies Allergy Code Allergy Type Reaction Status No Known Allergies 0 No known allergies Act fernie Procedures Procedure Code Procedure Type Date Arthrocentesis Aspir&/[place] [address] CPT 08/08/2021 History of Immunizations Unknown or Not Available. Problems Unknown or Not Available. Results Unknown or Not Available. Active Medications Medication Code Dose Units Frequency Route Modification Start Date/Time Flovent HFA 751444 1 EACH NEEDED INHALATION 018 0.11MG/1Actuat 16:23 ion Inhalation Aerosol Powder Prescription Detail 1 EACH INHALATION NEEDED ProAir HFA 206863 2 PUFF NEEDED INHALATION 11/30/19 18 16:23 0.09MG/1Actuation Inhalation Suspension Prescription Detail 2 PUFF INHALATION NEEDED Medications Administered During Visit Unknown or Not Available. Encounters Encounter Diagnosis Diagnosis Code Start Date Impingement syndrome of left shoulder M7542 Social History Smoking Status Code Start Date End Date Current every day smoker [id number] Patient Decision Aids Unknown or Not Available. Discharge Instructions You were admitted to [facility] on 08/08/2021 10:30 with a principal diagnosis of Impingement syndrome of lef t shoulder You had the following procedures done: Arthrocentesis Aspir&/Inj Major Jt/Bursa w/o US You were discharged from [facility] on 08/08/2021 10:30 Should you have any questions prior to [...]
--- OUTSIDE RECORDS SUMMARY | 2022-06-15 16:04 | XMS_ITS | Encounter Summary ---
:1990 Author Organization [facility] Address [address] [place] [address] Care Team Providers Name Role Phone Unknown, Provider Primary Care Provider Encounter Details Date Type Department Care Team Description 10/23/2018 Historical Results [facility] - Sunitha Choi MD Only [facility] - Main [facility] [address] [facility] 130 [facility] [address] [place], [place] [address] [place] [address] [phone] Social History Tobacco Use Types Packs/Day Years Used Date Never Assessed Sex Assigned at Date Recorded Not on file documented as of this encounter Plan of Treatment Not on filedocumented as of this encounter Procedures Procedure Name Priority Date/Time Associated Diagnosis Comme nts GROUP B STREP PCR Routine 10/23/2018 11:37 Result s for this EST procedure are i n the results section. documented in this encounter Results GROUP B STREP PCR (10/23/2018 11:37 EST) Pathologist Sig nature Group B Strep PCR Group B Strep [facility] Not-Detected by [facility] PCR Group B Strep PCR [facility] Group B Strep PCR Not Done [facility] Specimen Narrative [facility] - 018 11:33 EST Patient allergic to penicillin? No Performing Organization Address City/State/ZIP Code Phon e Number [facility] [address] [place] [address] [facility] documented in this encounter Visit Diagnoses Not on filedocumented in this encounter Care Teams Fitter Mechanic Relationship Specialty Start Date End Date Unknown, Provider, PCP - General 04/22/18 04/20/22 documented as of this encounter
--- OUTSIDE RECORDS SUMMARY | 2022-06-15 16:04 | XMS_ITS | Encounter Summary ---
:1990 Author Organization [facility] Address [address] [place] [address] Care Team Providers Name Role Phone Alessia Garcia Primary Care Provider Encounter Details Date Type Department Care Team Description 07/28/[address] [facility] PRISM Patch, Rochelle, CNM [phone] [address] [facility] [address] [place] [address] Social History Tobacco Use Types Packs/Day Years Used Date Never Assessed Sex Assigned at Date Recorded Not on file documented as of this encounter Plan of Treatment Not on filedocumented as of this encounter Procedures Procedure Name Priority Date/Time Associated Diagnosis Comme nts [facility] FOLLOW-UP 07/29/2009 13:24 EDT Result s for this procedure are i n the results section . documented in this encounter Results [facility] FOLLOW-UP (07/29/2009 13:24 EDT) Anatomical Region Laterality Modality Other Specimen Narrative [facility] - 07/29/2009 14:02 EDT Please refer to the separate [facility] re port. ??Contact Maternal Medicine. Procedure Note 07/29/2009 Please refer to the separate [facility] re port. Contact Maternal Medicine. Performing Organization Address City/State/ZIP Code Phon e Number [facility] MATERNAL MEDICINE ACC [facility] documented in this encounter Visit Diagnoses Not on filedocumented in this encounter Care Teams Inbound Call Center Agent Relationship Specialty Start Date End Date Alessia Garcia FNP PCP - General 06/15/09 04/21/18 [address] [place] [phone] documented as of this encounter
--- OUTSIDE RECORDS SUMMARY | 2022-06-15 16:04 | XMS_ITS | Encounter Summary ---
:1990 Author Organization [facility] Address [address] [place] [address] Care Team Providers Name Role Phone Unknown, Provider Primary Care Provider Encounter Details Date Type Department Care Team Description 09/27/[address] [facility] - Angela Palomino, Only [facility] [place] Main [facility] [address] REPAIRER [address] [place] [address] [address] [place] [address] Social History Tobacco Use Types Packs/Day Years Used Date Never Assessed Sex Assigned at Date Recorded Not on file documented as of this encounter Plan of Treatment Not on filedocumented as of this encounter Procedures Procedure Name Priority Date/Time Associated Diagnosis Comme nts GC/CHLAMYDIA URINE Routine 09/27/2018 10:56 Resul ts for this - [facility] EST procedure are i n the results section. documented in this encounter Results GC/CHLAMYDIA URINE - [facility] (09/27/2018 10:56 EST) Pathologist Sig nature CHLAMYDIA URINE PCR NOT DETECTED [facility] GONORRHEA URINE PCR NOT DETECTED [facility] SOURCE URINE [facility] Specimen Performing Organization Address City/State/ZIP Code Phon e Number [facility] [address] [place] [address] [facility] documented in this encounter Visit Diagnoses Not on filedocumented in this encounter Care Teams Spa Receptionist Relationship Specialty Start Date End Date Unknown, Provider, PCP - General 04/22/18 04/20/22 documented as of this encounter
--- OUTSIDE RECORDS SUMMARY | 2022-06-15 16:04 | XMS_ITS | Encounter Summary ---
:1990 Author Organization [facility] Address [address] [place] [address] Care Team Providers Name Role Phone Alessia Garcia Primary Care Provider Encounter Details Date Type Department Care Team Description 10/18/2009 Abstract [facility] [place] [facility] Alessia Marino FNP Services - [facility] [address] [place] [address] [place], [place] [address] [phone] Social History Tobacco Use Types Packs/Day Years Used Date Never Assessed Sex Assigned at Date Recorded Not on file documented as of this encounter Plan of Treatment Not on filedocumented as of this encounter Visit Diagnoses Not on filedocumented in this encounter Care Teams Medical Lab Scientist Relationship Specialty Start Date End Date Alessia Garcia FNP PCP - General 06/15/09 04/21/18 [address] [place] [address] documented as of this encounter
--- OUTSIDE RECORDS SUMMARY | 2022-06-15 16:04 | XMS_ITS | Clinical Summary ---
:1990 Author Organization [facility] Address [address] [place] [address] Care Team Providers Name Role Phone Keyona Krishnamurthy MD Primary Care Provider Active Problems Problem Noted Date Encounter for anatomic survey 09/01/2009 Overview: Liver echogenicity Other known or suspected abnormality, not elsewh ere classified, 06/17/2009 affecting management of mother, antepartum condition o r complication Overview: Abdominal calcification. Encounters Date Type Specialty Care Team Description 04/21/2022 Hospital Encounter Radiology Crushing injury of left index finger from Last 3 Months Social History Tobacco Use Types Packs/Day Years Used Date Never Assessed Sex Assigned at Date Recorded Not on file Plan of Treatment Health Maintenance Due Date Last Done Comments Hepatitis C Screen 1990 COVID-19 Vaccine (#1) 1994 Procedures Procedure Name Priority Date/Time Associated Diagnosis Comme nts XR HAND LEFT 3 OR STAT 04/21/2022 16:32 Crushing injury of Results for this MORE VIEWS EDT left index finger procedure are in the results section. from Last 3 Months Results XR HAND LEFT 3 OR MORE VIEWS (04/21/2022 16:32 EDT) Anatomical Region Laterality Modality Upper Extremities Left Computed Radiography Specimen Impressions [facility] - 04/21/2022 17:12 EDT Acute nondisplaced fracture of the distal diaphysis of the distal phalanx of 2nd finger. ?? THIS DOCUMENT HAS BEEN ELECTRONICALLY SI GNED BY AMAURI CAI DO FOR ANY QUESTIONS OR CONCERNS REGARDING THIS REPORT PLEASE CALL [facility] AT [phone] [facility] - 04/21/2022 17:12 EDT [...] REGARDING THIS REPORT PLEASE CALL [facility] AT [phone] Performing Organization Address City/State/ZIP Code Phon e Number [facility] from Last 3 Months Insurance Payer Benefit Plan Subscriber ID Effective Phone Address Typ e / Group Dates LIBERTY LIBERTY 2022-Pres [phone] [address] [employer] [place] [address] [place], [place] [id number] MEDICAID ACO MEDICAID ACO [id number] 2019-Pres [phone] [address] Medicaid [place] ent [address] [facility] [id number] Catarina Dooley Personal/Family Self 1990 [address] (Home) [place] [address] Catarina Dooley Personal/Family Self 1990 [address] (Home) [place] [address] Catarina Dooley Personal/Family Self 1990 [address] (Home) [place] [address] Catarina Dooley Personal/Family Self 1990 [address] (Home) [place] [address] Catarina Dooley Personal/Family Self 1990 [address] (Home) [place] [address] Catarina Dooley Personal/Family Self 1990 [address] (Home) [place] [address] Catarina Dooley Personal/Family Self 1990 [address] (Home) [place] [address] Care Teams Integrated Circuits Inspector Relationship Specialty Start Date End Date Keyona Krishnamurthy MD PCP - General Family Medicine - Primary 04/21/[address] [place] [phone]
--- OUTSIDE RECORDS SUMMARY | 2022-06-15 16:04 | XMS_ITS | Encounter Summary ---
:1990 Author Organization [facility] Address [address] [place] [address] Care Team Providers Name Role Phone Unknown, Provider Primary Care Provider Encounter Details Date Type Department Care Team Description 07/02/2018 Historical Results [facility] - Sophia Parry, Only [facility] Radiology Resul ts [address] [place] [address] [address] [place] [address] Social History Tobacco Use Types Packs/Day Years Used Date Never Assessed Sex Assigned at Date Recorded Not on file documented as of this encounter Plan of Treatment Not on filedocumented as of this encounter Procedures Procedure Name Priority Date/Time Associated Diagnosis Comme nts US OB ROUTINE 07/02/2018 13:46 Results fo r this (GREATER THAN 14 EDT procedure a re in WEEKS) the results section. documented in this encounter Results US OB ROUTINE (GREATER THAN 14 WEEKS) (07/02/2018 13:46 EDT) Specimen Narrative [facility] - 07/04/2018 13:59 EDT ? EXAM: ULTRASOUND/OB-LEVEL 2 ? EX. D/ (1346) ? CLINICAL INFORMATION: ? Z3A.20 20WKS GESTATION ? GESTATIONAL AGE/ ASSESSMENT ? SALAZAR 11/19/18 ? See attached report. ??Report als o available in PACS. ? EM:kad ?Reported B y: Manisha Garrison MD ? CC: ? Transcribed Date/Time: 07/04/2018 (0223) ? Aquaculture Farmer: EFREN ? Printed Date/Time: 05/03/2019 (25 65) ? PAGE 1 ? Diana d Report ? Procedure Note Manisha Garrison MD - 09/18/2019 EXAM: ULTRASOUND/OB-LEVEL 2 EX. D/T: (1346) CLINICAL INFORMATION: Z3A.20 20WKS GESTATION GESTATIONAL AGE/ ASSESSMENT SALAZAR 11/19/18 See attached report. Report also availa ble in PACS. EM:benny Reported By: Manisha Garrison MD CC: Transcribed Date/Time: 07/04/2018 (4894 ) Aquaculture Farmer: EFREN Printed Date/Time: 05/03/2019 (0931) PAGE 1 Signed Report Performing Organization Address City/State/ZIP Code Phon e Number [facility] documented in this encounter Visit Diagnoses Not on filedocumented in this encounter Care Teams Lump Roller Relationship Specialty Start Date End Date Unknown, Provider, PCP - General 04/22/18 04/20/22 documented as of this encounter
--- OUTSIDE RECORDS SUMMARY | 2022-06-15 16:04 | XMS_ITS | Encounter Summary ---
:1990 Author Organization [facility] Address [address] [place] [address] Care Team Providers Name Role Phone Alessia Garcia SHRUTHI Primary Care Provider Md LUCIE Cr Primary Care Provider Unavailable Unknown, Provider Primary Care Provider Encounter Details Date Type Department Care Team Description 09/16/2007 Results Only [facility] - Candido Marquis, johan MD [address] [facility] [address] [place], [place] [id number] [place] [address] Social History Tobacco Use Types Packs/Day Years Used Date Never Assessed Sex Assigned at Date Recorded Not on file documented as of this encounter Plan of Treatment Not on filedocumented as of this encounter Procedures Procedure Name Priority Date/Time Associated Diagnosis Comme nts CYTOPATHOLOGY Routine 09/16/2007 0:00 EST Results for this procedure are i n the results section . documented in this encounter Results CYTOPATHOLOGY (09/16/2007 0:00 EST) Pathology Report: CYTOPATHOLOGY REPORT [facility] Reports generated via electronic interface contain roopa ginal data; however they are lacking the format of the original re port. Caution should be taken when reading/interpreting unfo rmatted reports. Name: ? CATARINA TODD ? Accession #: ? [id number] : ? 1990 (Age: 17) ??F ?Collect Date: ? 03/2007 Location: ? [facility] ? Receive Date : ? 09/18/2007 Provider: ?PACO CHRISTIAN MD Copy to: ? Specimen/Source: ? ThinPrep Pap Test, Cervix/Endocervix, processed on [employer] ThinPrep Imaging System, with manual evaluation Last Menstrual Period: ? 08/26/07 Hormonal/Contraceptive Status: ? Yes: Ortho Evra Patch Other: ? HPVA - HPV testing requested if ASC-US on the current ThinPrep Pap test. ? SPECIMEN ADEQUACY ? Satisfactory for Evaluation - transformation zone component present GENERAL CATEGORIZATION ? Negative for Intraepithelial Lesion or Malignan cy INTERPRETATION ? Reactive cellular mikaela nges associated with inflammation present (includes repair). ? Document reviewed and electronically signed by: ? IDA GONZALES MD ? Report Date: ??09/24/2007 11:10 End of Report Specimen Performing Organization Address City/State/ZIP Code Phon e Number [facility] [address] [place] [phone] [facility] [address] [place] [address] documented in this encounter Visit Diagnoses Not on filedocumented in this encounter Care Teams Syrup Shed Supervisor Relationship Specialty Start Date End Date Alessia Garcia FNP PCP - General 06/15/09 04/21/18 [address] [place] [phone] Md Cr MD PCP - General 06/14/09 06/14/09 Unknown, MD Cecile PCP - General 06/08/09 06/13/09 documented as of this encounter
--- OUTSIDE RECORDS SUMMARY | 2022-06-15 16:04 | XMS_ITS | Encounter Summary ---
:1990 Author Organization [facility] Address [address] [place] [address] Care Team Providers Name Role Phone Alessia Garcia Primary Care Provider Encounter Details Date Type Department Care Team Description 07/29/2009 Hospital Encounter [facility] MD Arvind [address] [facility] [address] [place], [place] [phone] [place] [address] [place], [address] [place] [phone] (Wo rk) Social History Tobacco Use Types Packs/Day Years Used Date Never Assessed Sex Assigned at Date Recorded Not on file documented as of this encounter Discharge Disposition Disposition Code Departure Means Destination Home or Self Detention documented in this encounter Plan of Treatment Not on filedocumented as of this encounter Visit Diagnoses Not on filedocumented in this encounter Care Teams Discovery Guide Relationship Specialty Start Date End Date Alessia Garcia FNP PCP - General 06/15/09 04/21/18 [address] [place] [address] documented as of this encounter
--- OUTSIDE RECORDS SUMMARY | 2022-06-15 16:04 | XMS_ITS | Encounter Summary ---
:1990 Author Organization [facility] Address [address] [place] [address] Care Team Providers Name Role Phone Unavailable Primary Care Provider Unavailable Encounter Details Date Type Department Care Team Description 04/19/2009 Orders Only [facility] Adult Unknown , Provider, Primary Care - Isai pittman [address] [facility] [place], [place] [address] Social History Tobacco Use Types Packs/Day Years Used Date Never Assessed Sex Assigned at Date Recorded Not on file documented as of this encounter Plan of Treatment Not on filedocumented as of this encounter Procedures Procedure Name Priority Date/Time Associated Comments Diagnosis RUBELLA IGG ANTIBODY Routine 04/19/2009 10:08 Res ults for this EDT procedure are i n the results section. HEPATITIS B SURFACE Routine 04/19/2009 10:08 Resu lts for this ANTIGEN EDT procedure are i n the results section. SYPHILIS SERO (RPR) Routine 04/19/2009 10:08 Resu lts for this EDT procedure are i n the results section. HIV 1/2 ANTIGEN AND Routine 04/19/2009 10:08 Resu lts for this ANTIBODY, 4TH EDT procedure are in GENERATION the results section. documented in this encounter Results HIV ANTIBODY (04/19/2009 10:08 EDT) HIV 1/2 Antibody Negative [facility] Reference Range: ??Negative Specimen Blood specimen (specimen) Performing Organization Address City/State/ZIP Code Phon e Number [facility] [address] [place] [address] [facility] [address] [place] [address] SYPHILIS SERO (RPR) (04/19/2009 10:08 EDT) Pathologist Sig nature Syphilis Sero (RPR) NONREACT. NR Dils [facility] Specimen Blood specimen (specimen) Performing Organization Address [facility]/ZIP Code Phon e Number [facility] [address] [place] [address] [facility] [address] [place] [address] RUBELLA IGG ANTIBODY (04/19/2009 10:08 EDT) Pathologist Sig nature Rubella IgG Ab Antibody detected [facility] Assayed utilizing the DPC Immulite 2500. Values may vary with other methods. Specimen Blood specimen (specimen) Performing Organization Address [facility]/ZIP [facility] Phon e Number [facility] [address] [place] [address] SERVICES [facility] [address] [place] [address] HEPATITS B SURFACE ANTIGEN (04/19/2009 10:08 EDT) Hepatitis B Surface Negative [facility] Ag Reference Range: ??Negative Specimen Blood specimen (specimen) Performing Organization Address City/[facility]/ZIP [facility] Phon e Number [facility] [address] [place] [address] [facility] [address] [place] [address] documented in this encounter Visit Diagnoses Not on filedocumented in this encounter
--- OUTSIDE RECORDS SUMMARY | 2022-06-15 16:04 | XMS_ITS | Encounter Summary ---
:1990 Author Organization [facility] Address [address] [place] [address] Care Team Providers Name Role Phone Unknown, Provider Primary Care Provider Keyona Krishnamurthy MD Primary Care Provider Encounter Details Date Type Department Care Team Description 07/20/2021 Results Only Imaging [facility] - Andria Blackman ed A, [facility] Radiology Resul ts PA-C [address] [place] [address] [place] [phone] (Wo rk) Social History Tobacco Use Types Packs/Day Years Used Date Never Assessed Sex Assigned at Date Recorded Not on file documented as of this encounter Plan of Treatment Not on filedocumented as of this encounter Procedures Procedure Name Priority Date/Time Associated Diagnosis Comme nts MR SHOULDER WO 07/20/2021 16:52 Results f or this CONTRAST LEFT EDT procedure are in the results section. documented in this encounter Results MR SHOULDER WO CONTRAST LEFT (07/20/2021 16:52 EDT) Specimen Narrative [facility] - 07/20/2021 16:52 EDT ? EXAM: MAGNETIC RESONANCE IMAGING/SHOULDER EX. D/ (1620) ? CLINICAL INFORMATION: ? S43.402A UNSPECIFIED SPRAIN OF LE FT SHOULDER ? JOINT, INITIAL ENCOUNTER ? PROCEDURE INFORMATION: ? Exam: MR Left Upper Extremity Denia nt Without Contrast; Shoulder ? Exam date and time: 07/20/2021 4:20 PM ? Age: 31 years old ? Clinical indication: Other: S43.4 02a unspecified sprain of left ? shoulder, joint, initial encounte r ? TECHNIQUE: ? Imaging protocol: MR of the Left upper extremity without ? contrast. Exam focused on the montez ulder. ? COMPARISON: ? CR SHOULDER-LEFT 02/05/2021 6:59 P M ? FINDINGS: ? Bones and cartilage: There is phylicia y mild acromioclavicular ? arthrosis. The glenohumeral artic ular cartilage is intact. Small ? dark signal focus in the glenoid posteriorly corresponds to a ? bone island on the radiographs. T he bone marrow is otherwise ? essentially normal in signal. ? Joint spaces: Fluid in the glenoh umeral joint is within ? physiologic limits. ? Glenoid labrum: No gross tear of the glenoid labrum is evident. ? Bursae: No significant fluid is p resent in the subacromial, ? subdeltoid bursa. ? Supraspinatus tendon: Mild supras pinatus tendinopathy. ? Infraspinatus tendon: Unremarkabl e. No evidence of tear. ? Subscapularis tendon: Unremarkabl e. No evidence of tear. ? Teres minor tendon: Unremarkable. No evidence of tear. ? Tendon of biceps brachii: Intact and in normal position. ? Glenohumeral ligaments: Unremarka ble. ? Muscles: Unremarkable. ? Soft tissues: Unremarkable. ? IMPRESSION: ? 1. Very mild acromioclavicular ar throsis. ? 2. Mild supraspinatus tendinopath y. ? REPORT SIGNED IN OTHER VENDOR SYSTEM 07/20/2021 ?Reported B y: Faheem Culver MD ? CC: ? Transcribed Date/Time: 07/20/2021 (1652) ? Concrete Truck Driver: [employer] ? Printed Date/Time: 07/20/2021 (16 52) ? PAGE 1 ? Diana d Report ? Procedure Note Faheem Culver MD - 07/20/2021 EXAM: MAGNETIC RESONANCE IMAGING/SHOULD ER EX. D/ (1620) CLINICAL INFORMATION: S43.402A UNSPECIFIED SPRAIN OF LEFT MONTEZ ULDER JOINT, INITIAL ENCOUNTER PROCEDURE INFORMATION: Exam: MR Left Upper Extremity Joint Wit hout Contrast; Shoulder Exam date and time: 07/20/2021 4:20 PM Age: 31 years old Clinical indication: Other: S43.402a un specified sprain of left shoulder, joint, initial encounter TECHNIQUE: Imaging protocol: MR of the Left upper extremity without contrast. Exam focused on the shoulder. COMPARISON: CR SHOULDER-LEFT 02/05/2021 6:59 PM FINDINGS: Bones and cartilage: There is very mild acromioclavicular arthrosis. The glenohumeral articular c artilage is intact. Small dark signal focus in the glenoid director hospice operations iorly corresponds to a bone island on the radiographs. The bon e marrow is otherwise essentially normal in signal. Joint spaces: Fluid in the glenohumeral joint is within physiologic limits. Glenoid labrum: No gross tear of the gl enoid labrum is evident. Bursae: No significant fluid is present in the subacromial, subdeltoid bursa. Supraspinatus tendon: Mild supraspinatu s tendinopathy. Infraspinatus tendon: Unremarkable. No evidence of tear. Subscapularis tendon: Unremarkable. No evidence of tear. Teres minor tendon: Unremarkable. No ev idence of tear. Tendon of biceps brachii: Intact and in normal position. Glenohumeral ligaments: Unremarkable. Muscles: Unremarkable. Soft tissues: Unremarkable. IMPRESSION: 1. Very mild acromioclavicular arthrosi s. 2. Mild supraspinatus tendinopathy. REPORT SIGNED IN OTHER VENDOR SYSTEM 07/20/2021 Reported By: Faheem Culver MD CC: Transcribed Date/Time: 07/20/2021 (1651 ) Concrete Truck Driver: Printed Date/Time: 07/20/2021 (1651) PAGE 1 Signed Report Performing Organization Address City/State/ZIP Code Phon e Number [facility] documented in this encounter Visit Diagnoses Not on filedocumented in this encounter Care Teams Livestock Exhibitor Relationship Specialty Start Date End Date Unknown, Provider, PCP - General 04/22/18 04/20/22 Keyona Krishnamurthy MD PCP - General Family Medicine - Primary 04/21/[address] [place] [phone] documented as of this encounter
[2022-06-15 16:40] LABS: Anion Gap 5.9 mmol/L (3-11); BUN 13 mg/dL (7-18); CO2 28.1 mmol/L (21.0-32.0); CREATININE 0.8 mg/dL (0.55-1.02); Calcium 8.9 mg/dL (8.5-10.1); Calculated LDL 113 mg/dL (<100); Chloride 107 mmol/L (98-107); Cholesterol 195 mg/dL (<200); Glucose 87 mg/dL (74-106); HDL Cholesterol 65 mg/dL (40-60); Potassium 3.9 mmol/L (3.5-5.1); Sodium 141 mmol/L (136-145); Triglyceride 88 mg/dL (<150)
[2022-06-15 16:58] LABS: Hemoglobin A1C 5.4 % (<5.7)
== END 2022-06-15 15:55 | disposition home or self-care (01) ==
LOC: NCHCN 15:54
PROVIDERS: PCP Family Medicine; Visit Provider Nurse Practitioner Family
DX: E66.3 Overweight (principal); Z13.1 Encounter for screening for diabetes mellitus; Z00.00 Encounter for general adult medical examination without abnormal findings
CPT/HCPCS: 80048; 80061; 83036

== ENCOUNTER 2022-06-19 13:18 | Outpatient (REF) | payer MEDICAID, SELFPAY ==
--- NOTE | 2022-06-19 11:00 | PAPFT_PTH ---
PATIENT: Catarina Dooley LOC: [facility]#:[id number] AGE/SX: 32/F ROOM: RE06/19/[address]: Earline Rose : 1990 BED: DIS: 06/19/2022 SPEC #: [id number] RECD: 06/19/22 16:58 STATUS: JOLIE SALINAS #: [id number] GREG: 06/19/22 11:[address]: Earline Fenton DEPT: [facility] Cytology RECD BY: Roel Casas Tissues: 1 - CX/ENDOCX FOR PAP SMEARS Procedures: PAP THIN PREP/[facility] Screening HPV DNA PROBE Comments: [id number] (Chlamydia/GC)
[2022-06-20 15:31] LABS: Chlamydia Result Negative (Negative); GC Result Negative (Negative)
== END 2022-06-19 13:19 | disposition home or self-care (01) ==
LOC: NCHCN 13:18
PROVIDERS: PCP Family Medicine; Visit Provider Nurse Practitioner Family
DX: Z12.4 Encounter for screening for malignant neoplasm of cervix (principal); Z11.51 Encounter for screening for human papillomavirus (HPV)
CPT/HCPCS: 87491; 87591; 88142; 87624

== ENCOUNTER 2023-03-26 13:15 | Outpatient (REF) | payer MEDICAID, SELFPAY ==
[2023-03-26 15:04] LABS: Abs Immature Grans 0.03 10^3/uL (0.0-0.06); Absolute Basophil Count 0.04 10^3/uL (0.0-0.2); Absolute Eosinophil Count 0.11 10^3/uL (0.0-0.7); Absolute Lymphocyte Count 2.61 10^3/uL (1.2-3.4); Absolute Monocyte Count 0.47 10^3/uL (0.1-0.8); Absolute Neutrophil Count 3.91 10^3/uL (1.2-6.7); Basophils % 0.6; Eosinophils % 1.5; HCT 42.5 % (36.0-46.0); HGB 14.1 g/dL (11.2-15.7); Immature Grans % 0.4; Lymphocytes % 36.4; MCH 27.6 pg (27.0-33.0); MCHC 33.2 % (32.0-36.0); MCV 83 fL (80-95); MPV 10.3 fL (8.0-11.0); Monocytes % 6.6; Neutrophils % 54.5; Platelet Count 323 10^3/uL (130-400); RDW 13.3 % (11.7-14.6); RDW-SD 40.6 fL; WBC 7.17 10^3/uL (4.4-10.8)
[2023-03-26 15:27] LABS: TSH 0.86 uIU/mL (0.36-3.74)
[2023-03-27 13:57] LABS: Chlamydia Result Negative (Negative); GC Result Negative (Negative)
== END 2023-03-26 13:16 | disposition home or self-care (01) ==
LOC: NCHCN 13:15
PROVIDERS: PCP Family Medicine; Visit Provider Nurse Practitioner Family
DX: R10.2 Pelvic and perineal pain (principal); Z13.0 Encounter for screening for diseases of the blood and blood-forming organs and certain disorders involving the immune mechanism; N92.5 Other specified irregular menstruation
CPT/HCPCS: 87491; 87591; 84443; 85025

== ENCOUNTER 2024-06-06 11:53 | Outpatient (REF) | payer MEDICAID, SELFPAY ==
[2024-06-06 15:24] LABS: HCT 43.3 % (36.0-46.0); HGB 14.3 g/dL (11.2-15.7); MCH 27.3 pg (27.0-33.0); MCV 83 fL (80-95); MPV 10.9 fL (8.0-11.0); Platelet Count 370 10^3/uL (130-400); RBC 5.24 10^6/uL (3.93-5.22); RDW 13.6 % (11.7-14.6); RDW-SD 40.7 fL; WBC 7.87 10^3/uL (4.4-10.8)
[2024-06-06 15:47] LABS: TSH 1.58 uIU/Ml (0.36-3.74)
== END 2024-06-06 11:54 | disposition home or self-care (01) ==
LOC: NCHCN 11:53
PROVIDERS: PCP Family Medicine; Visit Provider Family Medicine
DX: R42 Dizziness and giddiness (principal)
CPT/HCPCS: 85027; 84443